=== PATIENT | female | born 2005 | race Caucasian/White ===

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

== ENCOUNTER 2023-01-09 18:35 | Emergency (ER) | payer OTHER ==
[~2023-01-09] VITALS: Ht 154.9 cm; Wt 98.2 kg
[2023-01-09] MEDS ORDERED: AMOXICILLIN500 MG PO (20:46)
[2023-01-09 20:50] VITALS: BP 124/78
== END 2023-01-09 20:55 | disposition home or self-care (01) ==
LOC: ED 18:35
DX: S51.812D Laceration without foreign body of left forearm, subsequent encounter (principal); X58.XXXD Exposure to other specified factors, subsequent encounter

== ENCOUNTER 2023-02-10 19:15 | Emergency (ER) | payer OTHER ==
[~2023-02-10] VITALS: Ht 154.9 cm; Wt 86.0 kg
[~2023-02-10 19:15] MED LIST changes: +AMOXICILLIN500 MG PO
[2023-02-10 21:43] LABS: BASO% 0.6 % (0-3); EOS% 2.1 % (0-8); HEMATOCRIT 42.7 % (37.0-47.0); HEMOGLOBIN 13.7 g/dl (12.0-16.0); IMMATURE GRANULOCYTES 0.2 % (0.0-5.0); LYMPH% 38.5 % (15-41); MEAN CELL VOLUME 86.8 fL CALC (80.0-100.0); MEAN CORPUSCULAR HGB 27.8 pG CALC (26.0-32.0); MEAN CORPUSCULAR HGB CONC 32.1 g/dL CAL (32.0-36.0); MONO% 5.3 % (2-13); NEUT# 6.69 thou/uL (2.00-7.15); NEUT% 53.3 % (42-76); RED BLOOD COUNT 4.92 mill/uL (4.20-5.60); RED CELL DISTRI WIDTH 12.9 % (11.5-15.5)
[2023-02-10 21:46] LABS: URINE BILIRUBIN - DIPSTICK NEGATIVE (NEGATIVE); URINE BLOOD DIPSTICK LARGE (NEGATIVE); URINE COLOR YELLOW; URINE GLUCOSE - DIPSTICK NEGATIVE (NEGATIVE); URINE KETONE NEGATIVE (NEGATIVE); URINE LEUK ESTERASE NEGATIVE (NEGATIVE); URINE PROTEIN - DIPSTICK NEGATIVE (NEG-TRACE); URINE SPECIFIC GRAVITY >=1.030; URINE UROBILINOGEN - DIPSTICK 0.2 E.U./dL (0.2)
[2023-02-10 21:49] LABS: ALBUMIN 4.4 g/dL (3.2-5.0); ALKALINE PHOSPHATASE 93 u/l (38-126); ANION GAP 12 (6-22 (CALC)); BUN 20 mg/dL (7-17); BUN/CREATININE RATIO 21 (12-20 (CALC)); CARBON DIOXIDE 23 mmol/l (22-30); CHLORIDE 109 mmol/l (95-108); CREATININE 0.9 mg/dL (0.5-1.0); GFR FOR AFR.AMER. > 60 ML/MIN (>=60 (CALC)); GFR OTHER RACES > 60 ML/MIN (>=60 (CALC)); POTASSIUM 3.9 mmol/l (3.5-5.1); SGOT/AST 26 u/l (14-36); SODIUM 141 mmol/l (137-146); TOTAL PROTEIN 7.6 g/dL (6.3-8.2)
[2023-02-10 21:51] LABS: URINE NITRITE - DIPSTICK NEGATIVE (Negative)
[2023-02-10 21:55] LABS: URINE RBC 50-100 RBC/hpf (0-5)
[2023-02-10 22:06] LABS: BETA-HCG, QUANT(RESULT NUMBER) <2 mIU/mL
[2023-02-10 22:18] VITALS: BP 119/72
== END 2023-02-10 22:21 | disposition home or self-care (01) ==
LOC: ED 19:15
PROVIDERS: Emergency Medicine
DX: N93.8 Other specified abnormal uterine and vaginal bleeding (principal)

== ENCOUNTER 2023-05-27 07:14 | Emergency (ER) | payer OTHER ==
[~2023-05-27] VITALS: Ht 152.4 cm; Wt 85.0 kg
[2023-05-27 07:24] VITALS: BP 112/80
[2023-05-27 07:31] VITALS: BP 120/60
[2023-05-27 08:03] LABS: BASO% 0.4 % (0-3); EOS% 1.9 % (0-8); HEMOGLOBIN 13.3 g/dl (12.0-16.0); IMMATURE GRANULOCYTES 0.5 % (0.0-5.0); LYMPH% 33.4 % (15-41); MEAN CELL VOLUME 85.1 fL CALC (80.0-100.0); MEAN CORPUSCULAR HGB 27.6 pG CALC (26.0-32.0); MEAN CORPUSCULAR HGB CONC 32.4 g/dL CAL (32.0-36.0); MONO% 7.4 % (2-13); NEUT# 7.57 thou/uL (2.00-7.15); NEUT% 56.4 % (42-76); RED BLOOD COUNT 4.82 mill/uL (4.20-5.60); RED CELL DISTRI WIDTH 13.1 % (11.5-15.5)
[2023-05-27 08:04] LABS: URINE BILIRUBIN - DIPSTICK NEGATIVE (NEGATIVE); URINE COLOR YELLOW; URINE GLUCOSE - DIPSTICK NEGATIVE (NEGATIVE); URINE KETONE TRACE mg/dL (NEGATIVE); URINE NITRITE - DIPSTICK POSITIVE (Negative); URINE PROTEIN - DIPSTICK 30 mg/dL (NEG-TRACE); URINE UROBILINOGEN - DIPSTICK 0.2 E.U./dL (0.2)
[2023-05-27 08:04] LABS: ALBUMIN 4.2 g/dL (3.2-5.0); ALKALINE PHOSPHATASE 112 u/l (38-126); ANION GAP 14 (6-22 (CALC)); BILIRUBIN, TOTAL 0.5 mg/dL (0.02-1.3); BUN 13 mg/dL (7-17); BUN/CREATININE RATIO 20 (12-20 (CALC)); CARBON DIOXIDE 20 mmol/l (22-30); CHLORIDE 108 mmol/l (95-108); CREATININE 0.7 mg/dL (0.5-1.0); GFR FOR AFR.AMER. > 60 ML/MIN (>=60 (CALC)); GFR OTHER RACES > 60 ML/MIN (>=60 (CALC)); LIPASE 29 u/l (23-300); POTASSIUM 3.8 mmol/l (3.5-5.1); SGOT/AST 21 u/l (14-36); SODIUM 138 mmol/l (137-146); TOTAL PROTEIN 7.5 g/dL (6.3-8.2)
[2023-05-27 08:05] LABS: URINE BACTERIA MANY hpf; URINE BLOOD DIPSTICK TRACE (NEGATIVE); URINE EPITHELIAL CELLS MODERATE EPI/hpf (0-FEW); URINE LEUK ESTERASE LARGE (NEGATIVE); URINE RBC 0-2 RBC/hpf (0-5); URINE WBC 20-50 WBC/hpf (0-5)
[2023-05-27 09:25] VITALS: BP 96/58
[2023-05-27 09:30] VITALS: BP 107/73
[2023-05-27] MEDS ORDERED: ZOFRAN4 MG/TAB PO (09:58)
[2023-05-27] MEDS ORDERED: OMNI-PAC300 MG PO (09:58)
[2023-05-27 10:00] VITALS: BP 104/71
[2023-05-27 10:21] VITALS: BP 104/71
== END 2023-05-27 10:21 | disposition home or self-care (01) ==
LOC: ED 07:14
PROVIDERS: Family Medicine
DX: N12 Tubulo-interstitial nephritis, not specified as acute or chronic (principal); B96.89 Other specified bacterial agents as the cause of diseases classified elsewhere; E66.9 Obesity, unspecified; F17.210 Nicotine dependence, cigarettes, uncomplicated

== ENCOUNTER 2023-12-05 00:06 | Emergency (ER) | payer OTHER ==
[~2023-12-05] VITALS: Ht 152.4 cm; Wt 83.0 kg
[~2023-12-05 00:06] MED LIST changes: +OMNI-PAC300 MG PO; +ZOFRAN4 MG/TAB PO
[2023-12-05 00:15] VITALS: BP 139/79
[2023-12-05 00:21] VITALS: BP 136/56
[2023-12-05 00:41] VITALS: BP 101/73
[2023-12-05 00:42] LABS: BASO% 0.9 % (0-3); EOS% 2.9 % (0-8); HEMATOCRIT 44.8 % (37.0-47.0); IMMATURE GRANULOCYTES 0.2 % (0.0-5.0); LYMPH% 45.9 % (15-41); MEAN CELL VOLUME 86.7 fL CALC (80.0-100.0); MEAN CORPUSCULAR HGB CONC 33.5 g/dL CAL (32.0-36.0); MONO% 6.4 % (2-13); NEUT# 5.38 thou/uL (2.00-7.15); NEUT% 43.7 % (42-76); RED BLOOD COUNT 5.17 mill/uL (4.20-5.60); RED CELL DISTRI WIDTH 12.6 % (11.5-15.5)
[2023-12-05 00:44] LABS: URINE BILIRUBIN - DIPSTICK Negative (NEGATIVE); URINE BLOOD DIPSTICK Negative (NEGATIVE); URINE GLUCOSE - DIPSTICK Negative (NEGATIVE); URINE LEUK ESTERASE Trace (NEGATIVE); URINE PH 6.5 (4.5-8.0); URINE PROTEIN - DIPSTICK Trace mg/dL (NEG-TRACE); URINE SPECIFIC GRAVITY >=1.030
[2023-12-05 00:48] LABS: ALBUMIN 4.8 g/dL (3.2-5.0); ALKALINE PHOSPHATASE 104 u/l (38-126); ANION GAP 16 (6-22 (CALC)); BILIRUBIN, TOTAL 0.4 mg/dL (0.02-1.3); BUN 15 mg/dL (7-17); BUN/CREATININE RATIO 21 (12-20 (CALC)); CARBON DIOXIDE 21 mmol/l (22-30); CHLORIDE 110 mmol/l (95-108); CREATININE 0.7 mg/dL (0.5-1.0); GFR FOR AFR.AMER. > 60 ML/MIN (>=60 (CALC)); GFR OTHER RACES > 60 ML/MIN (>=60 (CALC)); LIPASE 60 u/l (23-300); SGOT/AST 49 u/l (14-36); SODIUM 143 mmol/l (137-146)
[2023-12-05 00:48] LABS: URINE COLOR Yellow; URINE NITRITE - DIPSTICK Positive (Negative)
[2023-12-05 00:49] LABS: URINE KETONE Negative (NEGATIVE)
[2023-12-05 00:50] LABS: URINE BACTERIA MANY hpf
[2023-12-05 00:51] LABS: URINE MUCUS MODERATE hpf (NONE-FEW)
[2023-12-05 01:00] VITALS: BP 107/66
[2023-12-05 01:20] VITALS: BP 96/63
[2023-12-05] MEDS ORDERED: BACTRIM DS1 TAB PO (03:43)
[2023-12-05 03:47] VITALS: BP 96/63
== END 2023-12-05 03:51 | disposition home or self-care (01) ==
LOC: ED 00:06
PROVIDERS: Family Medicine
DX: N12 Tubulo-interstitial nephritis, not specified as acute or chronic (principal); B96.1 Klebsiella pneumoniae [K. pneumoniae] as the cause of diseases classified elsewhere
CPT/HCPCS: Q9967